=== PATIENT | female | born 1985 | race Caucasian/White ===

== ENCOUNTER 2016-10-30 11:35 | Emergency (ER) | payer OTHER ==
[2016-10-30 11:40] VITALS: BP 137/95
--- NOTE | 2016-10-30 11:51 | EDM.PDOC ---
ED HPI GENERAL MEDICAL PROBLEM - General Chief Complaint: General Stated Complaint: WEAKNESS, BODY ACHES Time Seen by Provider: 10/30/16 11:42 Source of Information: Reports: Patient History Limitations: Reports: No Limitations - History of Present Illness INITIAL COMMENTS - FREE TEXT/NARRATIVE: Patient presents today with complaints of generalized weakness, fatigue and body aches. States hasn't been able to sleep due to discomfort. She has had a mild sore throat. Not much for sinus symptoms at present. Was treated about 2 weeks ago with Cipro for a sinus infection and fluid in the right ear and those symptoms have improved. Feels tired like when she was but did take a home test and that was negative. Patient denies cough, shortness of breath, chest discomfort. No nausea or vomiting but admits she has no appetite. No abdominal pain. No diarrhea. Onset: Gradual Duration: Day(s): Location: Reports: Generalized Quality: Reports: Ache, Dull Severity: Moderate Improves with: Reports: Rest Associated Symptoms: Reports: Fever/Chills, Headaches, Loss of Appetite, Malaise , Weakness. Denies: Chest Pain, Cough, Nausea/Vomiting, Shortness of Breath Generalized Pain Score (Numeric/FACES): 6 - Related Data Allergies Allergy/AdvReac Type Severity Reaction Status Date / Time cefdinir [From Omnicef] Allergy Cannot Verified 10/30/16 11:37 Remember cephalexin [Cephalexin] Allergy Cannot Verified 10/30/16 11:37 Remember Penicillins Allergy Cannot Verified 10/30/16 11:37 Remember Sulfa (Sulfonamide Allergy Cannot Verified 10/30/16 11:37 Antibiotics) Remember Home Meds: Home Meds . 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 Denies: Ear Pain, Rhinitis, Sinus Problem Respiratory: Denies: Shortness of Breath, Cough Cardiovascular: Denies: Chest Pain, Edema Endocrine: Reports: Fatigue GI/Abdominal: Reports: Decreased Appetite. Denies: Nausea, Vomiting : Reports: No Symptoms Musculoskeletal: Reports: Joint Pain, Muscle Pain Skin: Reports: No Symptoms Neurological: Reports: Headache ED EXAM, GENERAL - Physical Exam Exam: See Below Exam Limited By: No Limitations General Appearance: Alert, WD/WN, No Apparent Distress Ears: Normal External Exam, Normal TMs Nose: Normal Inspection, Normal Mucosa, No Blood Throat/Mouth: Other (psoterior pharynx is red, bilaterally patchy exudate noted) Head: Normocephalic Neck: Normal Inspection, Supple, Non-Tender Respiratory/Chest: No Respiratory Distress, Lungs Clear, Normal Breath Sounds Cardiovascular: Regular Rate, Rhythm GI/Abdominal: Normal Bowel Sounds, Soft, Non-Tender Back Exam: Normal Inspection Extremities: Normal Inspection Neurological: Alert, Oriented Psychiatric: Normal Affect, Normal Mood Skin Exam: Warm, Dry Course - Vital Signs Last Recorded V/S: Last Vital Signs Temp 99.7 F 10/30/16 11:38 Pulse 120 H 10/30/16 11:38 Resp 16 10/30/16 11:38 BP 137/95 H 10/30/16 11:38 Pulse Ox 97 10/30/16 11:38 - Orders/Labs/Meds Orders: Active Orders 24 hr Category Date Time Status BASIC METABOLIC PANEL,BMP [CHEM] Stat Lab 10/30/16 11:45 Received C-REACTIVE PROTEIN [CHEM] Stat Lab 10/30/16 11:45 Received TSH REFLEX TO FREE T4 [CHEM] Stat Lab 10/30/16 11:45 Received Labs: Laboratory Tests 10/30/16 10/30/16 10/30/16 Range/Units 11:45 11:45 11:45 WBC 7.7 (5.0-10.0) 10^3/uL RBC 4.71 (4.00-5.50) 10^6/uL Hgb 13.9 (12.0-16.0) g/dL Hct 41.5 (37.0-47.0) % MCV 88.1 (82.0-94.0) fL MCH 29.5 (27.0-32.0) pg MCHC 33.5 (33.0-38.0) g/dL RDW Coeff of Phil 13.2 (11.0-15.0) % Plt Count 273 (150-400) 10^3/uL Neut % (Auto) 77.0 (35-85) % Lymph % (Auto) 11.9 (10-55) % [place] % (Auto) 9.6 (0-16) % Eos % (Auto) 1.2 (0-5) % Baso % (Auto) 0.3 (0-3) % Neut # (Auto) 5.96 (1.80-7.00) 10^3/uL Lymph # (Auto) 0.92 L (1.00-4.80) 10^3/uL [place] # (Auto) 0.74 (0.00-0.80) 10^3/uL Eos # (Auto) 0.09 (0.00-0.45) 10^3/uL Baso # (Auto) 0.02 10^3/uL HCG, Qual Negative Urine Color Yellow (YELLOW) Urine Appearance Clear (CLEAR) Urine pH 6.0 (4.5-8.0) Ur Specific [place] 1.015 (1.003-1.020) Urine Protein Negative (NEGATIVE) mg/dL Urine Glucose (UA) Negative (NEGATIVE) mg/dL Urine Ketones Negative (NEGATIVE) mg/dL Urine Occult Blood Trace-lysed H (NEGATIVE) Urine Nitrite Negative (NEGATIVE) Urine Bilirubin Negative (NEGATIVE) Urine Urobilinogen 0.2 (0.2-1.0) EU/dL Ur Leukocyte Esterase Negative (NEGATIVE) Urine RBC 0-5 (0-5) /HPF Urine WBC Not seen (0-5) /HPF Ur Epithelial Cells Few H (NOT SEEN) /HPF Urine Bacteria Few H (NOT SEEN) /HPF Monoscreen Negative - Re-Assessments/Exams Free Text/Narrative Re-Assessment/Exam: 10/30/16 12:25 Labs reviewed and are all normal at this point. Discussed viral source and treatment plan with patient. Declines the need for IV fluids. Departure - Departure Time of Disposition: 12:25 Disposition: Home, Self-Care 01 Clinical Impression: Acute viral syndrome - Discharge Information Forms: ED Department Discharge Additional Instructions: 1. Push fluids 2. Tylenol or ibuprofen for fever or discomfort 3. Rest 4. We will notify you of any concerns with thyroid testing 5. Follow up in the next few days if persisting or worsening symptoms. - My Orders Last 24 Hours: My Active Orders 10/30/16 11:45 BASIC METABOLIC PANEL,BMP [CHEM] Stat C-REACTIVE PROTEIN [CHEM] Stat TSH REFLEX TO FREE T4 [CHEM] Stat - Assessment/Plan Last 24 Hours: My Active Orders 10/30/16 11:45 BASIC METABOLIC PANEL,BMP [CHEM] Stat C-REACTIVE PROTEIN [CHEM] Stat TSH REFLEX TO FREE T4 [CHEM] Stat
[2016-10-30 12:53] LABS: CHLORIDE,CL 104 mEq/L (98-106); SODIUM,NA 139 mEq/L (136-145)
== END 2016-10-30 12:30 | disposition home or self-care (01) ==
LOC: CC.ED 11:35
DX: B34.9 Viral infection, unspecified (principal); F32.9 Major depressive disorder, single episode, unspecified; E11.9 Type 2 diabetes mellitus without complications; F41.9 Anxiety disorder, unspecified; Z88.2 Allergy status to sulfonamides; Z88.0 Allergy status to penicillin; Z90.49 Acquired absence of other specified parts of digestive tract; Z88.1 Allergy status to other antibiotic agents
CPT/HCPCS: 36415; 80048; 81001; 84443; 84703; 85025; 86140; 86308; 87430; 99284

== ENCOUNTER 2017-03-23 08:26 | Emergency (ER) | payer OTHER ==
[2017-03-23 08:33] VITALS: BP 149/77
[2017-03-23 09:28] LABS: CHLORIDE,CL 102 mEq/L (98-106)
--- NOTE | 2017-03-23 10:06 | EDM.PDOC ---
ED HPI GENERAL MEDICAL PROBLEM - General Chief Complaint: Abdominal Pain Stated Complaint: PAIN IN LOWER LT SIDE AND BACK Time Seen by Provider: 03/23/17 08:55 Source of Information: Reports: Patient History Limitations: Reports: No Limitations - History of Present Illness INITIAL COMMENTS - FREE TEXT/NARRATIVE: Yaneli is a 31 yo female who presents to the ER this morning with complaints of abdominal pain. States it started about 3 days ago, seems to wax and wane. States it is in the left lower abdomen area. Is 14 weeks and had an ultrasound at 8 weeks and everything looked okay. She states she was in the clinic yesterday and given a Zpack and Promethazine with codeine for a cold. She admits she did not discuss her abdominal pain yesterday while in the clinic. States she deals with a lot of constipation when she is and takes colace every day. Stools are still typically hard. She denies any fevers. No nausea or vomiting. Denies any blood in her stool. Duration: Waxing/Waning Location: Reports: Abdomen Associated Symptoms: Reports: No Other Symptoms Left Lower Abdomen Pain Score (Numeric/FACES): 6 - Related Data Allergies Allergy/AdvReac Type Severity Reaction Status Date / Time cefdinir [From Omnicef] Allergy Cannot Verified 03/23/17 08:34 Remember cephalexin [Cephalexin] Allergy Cannot Verified 03/23/17 08:34 Remember Penicillins Allergy Cannot Verified 03/23/17 08:34 Remember Sulfa (Sulfonamide Allergy Cannot Verified 03/23/17 08:34 Antibiotics) Remember Home Meds: Home Meds Azithromycin 500 mg PO ASDIRECTED 03/23/17 [History] Codeine/Promethazine HCl [Promethazine-Codeine Syrup] 5 ml PO Q6H PRN 03/23/17 [ History] Multivitamin [Flintstones] 1 each PO DAILY 03/23/17 [History] Past Medical History HEENT History: Reports: Impaired 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 Denies: Wheezing Cardiovascular: Reports: No Symptoms GI/Abdominal: Reports: Abdominal Pain, Constipation. Denies: Bloody Stool, Diarrhea, Nausea, Vomiting : Reports: Flank Pain. Denies: Discharge, Dysuria, Frequency, Hematuria ED EXAM, GI/ABD - Physical Exam Exam: See Below Exam Limited By: No Limitations General Appearance: Alert, No Apparent Distress Ears: Normal External Exam, Normal Canal, Hearing Grossly Normal, Normal TMs Nose: Normal Inspection, Normal Mucosa, No Blood, Clear Rhinorrhea Throat/Mouth: Normal Inspection, Normal Lips, Normal Teeth, Normal Gums, Normal Oropharynx, No Airway Compromise Head: Atraumatic, Normocephalic Neck: Normal Inspection, Supple Respiratory/Chest: No Respiratory Distress, Lungs Clear, Normal Breath Sounds, No Accessory Muscle Use Cardiovascular: Normal Peripheral Pulses, Regular Rate, Rhythm, No Murmur GI/Abdominal Exam: Normal Bowel Sounds, Soft, Tender (llq, suprapubic) Neurological: Alert, Oriented, Normal Cognition Psychiatric: Normal Affect, Normal Mood Skin Exam: Warm, Dry, Intact, Normal Color, No Rash Course - Vital Signs Last Recorded V/S: Last Vital Signs Temp 97.8 F 03/23/17 08:31 Pulse 107 H 03/23/17 08:31 Resp 16 03/23/17 08:31 BP 149/77 H 03/23/17 08:31 Pulse Ox 98 03/23/17 08:31 - Orders/Labs/Meds Orders: Active Orders 24 hr Category Date Time Status OB Ltd 1 or More Fetus [US] Stat Exams 03/23/17 08:55 Ordered AMYLASE [CHEM] Stat Lab 03/23/17 08:55 Results C-REACTIVE PROTEIN [CHEM] Stat Lab 03/23/17 08:55 Results COMPREHENSIVE METABOLIC PN,CMP [CHEM] Stat Lab 03/23/17 08:55 Results CULTURE URINE [RM] Stat Lab 03/23/17 10:54 Ordered Labs: Laboratory Tests 03/23/17 03/23/17 03/23/17 Range/Units 08:55 08:55 08:57 WBC 8.0 (5.0-10.0) 10^3/uL RBC 4.42 (4.00-5.50) 10^6/uL Hgb 13.4 (12.0-16.0) g/dL Hct 39.2 (37.0-47.0) % MCV 88.7 (82.0-94.0) fL MCH 30.3 (27.0-32.0) pg MCHC 34.2 (33.0-38.0) g/dL RDW Coeff of Phil 13.1 (11.0-15.0) % Plt Count 232 (150-400) 10^3/uL Neut % (Auto) 76.1 (35-85) % Lymph % (Auto) 15.4 (10-55) % [place] % (Auto) 5.6 (0-16) % Eos % (Auto) 2.6 (0-5) % Baso % (Auto) 0.3 (0-3) % Neut # (Auto) 6.09 (1.80-7.00) 10^3/uL Lymph # (Auto) 1.23 (1.00-4.80) 10^3/uL [place] # (Auto) 0.45 (0.00-0.80) 10^3/uL Eos # (Auto) 0.21 (0.00-0.45) 10^3/uL Baso # (Auto) 0.02 10^3/uL Potassium 3.8 (3.5-5.0) mEq/L Chloride 102 (98-106) mEq/L Carbon Dioxide 25 (21-32) mmol/L BUN 5 L (7-18) mg/dL Creatinine 0.6 (0.6-1.0) mg/dL Est Cr Clr Drug Dosing 103.46 mL/min Estimated GFR (MDRD) > 60 (>=60) mL/min Glucose 101 H (75-99) mg/dL Calcium 9.2 (8.4-10.1) mg/dL Total Bilirubin 0.3 (0.0-1.0) mg/dL AST 14 L (15-37) U/L ALT 21 (12-78) U/L Alkaline Phosphatase 77 (46-116) U/L C-Reactive Protein 3.6 H (0.2-0.8) mg/dL Total Protein 7.1 (6.4-8.2) g/dL Albumin 2.9 L (3.4-5.0) g/dL Amylase 42 (25-115) U/L Urine Color Yellow (YELLOW) Urine Appearance Clear (CLEAR) Urine pH 6.5 (4.5-8.0) Ur Specific [place] 1.025 H (1.003-1.020) Urine Protein Negative (NEGATIVE) mg/dL Urine Glucose (UA) Negative (NEGATIVE) mg/dL Urine Ketones 15 H (NEGATIVE) mg/dL Urine Occult Blood Negative (NEGATIVE) Urine Nitrite Negative (NEGATIVE) Urine Bilirubin Negative (NEGATIVE) Urine Urobilinogen 0.2 (0.2-1.0) EU/dL Ur Leukocyte Esterase Trace H (NEGATIVE) Urine RBC Not seen (0-5) /HPF Urine WBC 0-5 (0-5) /HPF Ur Squamous Epith Cells Few H (NOT SEEN) /HPF Urine Bacteria Moderate H (NOT SEEN) /HPF Urine Mucus Few H (NOT SEEN) /HPF Departure - Departure Time of Disposition: 10:58 Disposition: Home, Self-Care 01 Clinical Impression: Dehydration during Constipation Qualifiers: Constipation type: unspecified constipation type Qualified Code(s): K59.00 - Constipation, unspecified UTI (urinary tract infection) Qualifiers: Urinary tract infection type: site unspecified Hematuria presence: without hematuria Qualified Code(s): N39.0 - Urinary tract infection, site not specified - Discharge Information Instructions: Constipation, Adult, [id number], Dehydration, Adult, Easy-to- Read, Urinary Tract Infection, Adult, [id number] Referrals: Delio Barbour MD [Primary Care Provider] - Forms: ED Department Discharge Additional Instructions: 1) Increase water intake 2) Macrobid 100mg twice a day for 10 days 3) Miralax - 1 capful daily as discussed 4) Urine is being cultured, will call with results or if any concerns 5) Ultrasound looked excellent today 6) If any concerns, recommend returning for reevaluation. - Problem List & Annotations (1) Constipation SNOMED Code(s): 73314410 Code(s): K59.00 - CONSTIPATION, UNSPECIFIED Status: Acute Current Visit: Yes Qualifiers: Constipation type: unspecified constipation type Qualified Code(s): K59.00 - Constipation, unspecified (2) Dehydration during SNOMED Code(s): 98755728 Code(s): KCT4810 - Status: Acute Current Visit: Yes (3) UTI (urinary tract infection) SNOMED Code(s): 77934251 Code(s): N39.0 - URINARY TRACT INFECTION, SITE NOT SPECIFIED Status: Acute Current Visit: Yes Qualifiers: Urinary tract infection type: site unspecified Hematuria presence: without hematuria Qualified Code(s): N39.0 - Urinary tract infection, site not specified - Problem List Review Problem List Initiated/Reviewed/Updated: Yes - My Orders Last 24 Hours: My Active Orders 03/23/17 08:55 OB Ltd 1 or More Fetus [US] Stat AMYLASE [CHEM] Stat C-REACTIVE PROTEIN [CHEM] Stat COMPREHENSIVE METABOLIC PN,CMP [CHEM] Stat 03/23/17 10:54 CULTURE URINE [RM] Stat - Assessment/Plan Last 24 Hours: My Active Orders 03/23/17 08:55 OB Ltd 1 or More Fetus [US] Stat AMYLASE [CHEM] Stat C-REACTIVE PROTEIN [CHEM] Stat COMPREHENSIVE METABOLIC PN,CMP [CHEM] Stat 03/23/17 10:54 CULTURE URINE [RM] Stat Plan: See additional instructions
[2017-03-23 12:56] LABS: SODIUM,NA 136 mEq/L (136-145)
== END 2017-03-23 11:07 | disposition home or self-care (01) ==
LOC: CC.ED 08:26
DX: O99.611 Diseases of the digestive system complicating pregnancy, first trimester (principal); K59.00 Constipation, unspecified; O23.41 Unspecified infection of urinary tract in pregnancy, first trimester; O99.281 Endocrine, nutritional and metabolic diseases complicating pregnancy, first trimester; E86.0 Dehydration; Z88.8 Allergy status to other drugs, medicaments and biological substances; Z88.0 Allergy status to penicillin; Z88.2 Allergy status to sulfonamides; Z88.1 Allergy status to other antibiotic agents; Z79.899 Other long term (current) drug therapy; Z3A.14 14 weeks gestation of pregnancy
CPT/HCPCS: 36415; 76815; 80053; 81001; 82150; 85025; 86140; 87086; 87804; 99284

== ENCOUNTER 2017-12-17 18:42 | Emergency (ER) | payer OTHER ==
--- NOTE | 2017-12-17 18:48 | EDM.PDOC ---
ED HPI GENERAL MEDICAL PROBLEM - General Chief Complaint: General Stated Complaint: Patient c/o fever that started today and got up to 100.9, also reports chills, body ache, DANG, sore throat and cough. Denies any UTI symptoms, nausea, vomiting, abdominal pain or diarrhea. Denies being around sick contacts. Time Seen by Provider: 12/17/17 18:47 Source of Information: Reports: Patient History Limitations: Reports: No Limitations - History of Present Illness Onset: Today Duration: Hour(s):, Constant Quality: Reports: Ache Improves with: Reports: None Worsens with: Reports: None Associated Symptoms: Reports: Cough, Fever/Chills, Headaches Headache Pain Score (Numeric/FACES): 7 - Related Data Allergies Allergy/AdvReac Type Severity Reaction Status Date / Time cefdinir [From Omnicef] Allergy Cannot Verified 12/17/17 18:47 Remember cephalexin [Cephalexin] Allergy Cannot Verified 12/17/17 18:47 Remember Penicillins Allergy Cannot Verified 12/17/17 18:47 Remember Sulfa (Sulfonamide Allergy Cannot Verified 12/17/17 18:47 Antibiotics) Remember Home Meds: Home Meds Multivitamin [Flintstones] 1 each PO DAILY 03/23/17 [History] Cholecalciferol (Vitamin D3) [Vitamin D] 5,000 unit PO DAILY 12/17/17 [History] Norethindrone [Leena] 0.35 mg PO DAILY 12/17/17 [History] Past Medical History HEENT History: Reports: Impaired 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, Psychiatric History: Reports: Anxiety, Depression Endocrine/Metabolic History: Reports: Diabetes, Gestational - Past Surgical History GI Surgical History: Reports: Cholecystectomy, Other (See Below) Social & Family History - Family History Family Medical History: Noncontributory - Caffeine Use Caffeine Use: Reports: None ED ROS GENERAL - Review of Systems Review Of Systems: See Below Constitutional: Reports: Fever, Chills, Malaise, Fatigue HEENT: Reports: Rhinitis Respiratory: Reports: Cough Cardiovascular: Reports: No Symptoms Endocrine: Reports: No Symptoms GI/Abdominal: Reports: No Symptoms : Reports: No Symptoms Musculoskeletal: Reports: Muscle Pain Skin: Reports: No Symptoms Neurological: Reports: No Symptoms Psychiatric: Reports: No Symptoms Hematologic/Lymphatic: Reports: No Symptoms Immunologic: Reports: No Symptoms ED EXAM, GENERAL - Physical Exam Exam: See Below Exam Limited By: No Limitations General Appearance: Alert, WD/WN, No Apparent Distress Ears: Normal External Exam, Normal Canal, Hearing Grossly Normal, Normal TMs Nose: Normal Inspection, Normal Mucosa, No Blood Throat/Mouth: Normal Inspection, Normal Lips, Normal Teeth, Normal Gums, Normal Voice, No Airway Compromise, Other (mild pharygeal redness) Neck: Normal Inspection, Supple, Non-Tender Respiratory/Chest: No Respiratory Distress, Lungs Clear, Normal Breath Sounds, No Accessory Muscle Use, Chest Non-Tender Cardiovascular: Normal Peripheral Pulses, Regular Rate, Rhythm, No Edema, No Gallop, No JVD, No Murmur, No Rub GI/Abdominal: Normal Bowel Sounds, Soft, Non-Tender, No Organomegaly, No Distention, No Abnormal Bruit, No Mass, Pelvis Stable Neurological: Alert, Oriented, CN II-XII Intact, Normal Cognition, Normal Gait, No Motor/Sensory Deficits Psychiatric: Normal Affect, Normal Mood Skin Exam: Warm, Dry, Intact, Normal Color, No Rash Course - Vital Signs Text/Narrative:: Stable. Last Recorded V/S: Last Vital Signs Temp 38.7 C H 12/17/17 20:49 Pulse 108 H 12/17/17 20:15 Resp 18 12/17/17 20:15 BP 139/88 12/17/17 20:15 Pulse Ox 100 12/17/17 20:15 - Orders/Labs/Meds Labs: Influenza negative Strep negative. Meds: Medications Discontinued Medications Generic Name Dose Route Start Last Admin Trade Name Franciscoq PRN Reason Stop Dose Admin Ibuprofen 400 mg 12/17/17 19:38 12/17/17 20:49 Motrin PO 12/17/17 19:39 400 mg ONETIME ONE Administration Ibuprofen Confirm 12/17/17 19:33 12/17/17 20:46 Motrin Administered 12/17/17 19:34 Not Given Dose 400 mg .ROUTE .STK-MED ONE Departure - Departure Time of Disposition: 20:03 Disposition: Home, Self-Care 01 Condition: Good Clinical Impression: Fever - Discharge Information *PRESCRIPTION DRUG MONITORING PROGRAM REVIEWED*: Not Applicable *COPY OF PRESCRIPTION DRUG MONITORING REPORT IN PATIENT EVELIN: Not Applicable Instructions: Fever, Adult Referrals: Provider,Unknown [Primary Care Provider] - Forms: ED Department Discharge Additional Instructions: Take tylenol and ibuprofen as directed as needed for fever. Follow up with PCP in 2-3 days if symptoms do not improve. Push fluids. - Problem List & Annotations (1) Fever SNOMED Code(s): 293102232 Code(s): R50.9 - FEVER, UNSPECIFIED Status: Acute - Problem List Review Problem List Initiated/Reviewed/Updated: Yes - Assessment/Plan Assessment:: Fever, given Ibuprofen. Probable viral illness, URI Plan: Take Ibuprofen or tylenol as needed for fever. Push fluids. Follow up with PCP if fever and symptoms persist.
[2017-12-17] MEDS ORDERED: Ibuprofen 200 MG Tab ONE (19:33)
[2017-12-17] MEDS ORDERED: Ibuprofen 200 MG Tab PO ONE (19:38)
[2017-12-17 20:48] VITALS: BP 139/88
== END 2017-12-17 20:20 | disposition home or self-care (01) ==
LOC: CC.ED 18:42
DX: R50.9 Fever, unspecified (principal); F41.9 Anxiety disorder, unspecified; F32.9 Major depressive disorder, single episode, unspecified; Z88.8 Allergy status to other drugs, medicaments and biological substances; Z88.2 Allergy status to sulfonamides
CPT/HCPCS: 87430; 87804; 99283; A9270

== ENCOUNTER 2019-01-09 17:53 | Emergency (ER) | payer OTHER ==
[2019-01-09 18:40] LABS: CHLORIDE,CL 103 mEq/L (98-106); SODIUM,NA 139 mEq/L (136-145)
[2019-01-09] MEDS: Ketorolac 60 MG/2 ML SDV ONE (19:02)
[2019-01-09] MEDS: Lidocaine 2% Viscous Solution 15 ML Cup PO ONE (19:30)
[2019-01-09] MEDS: Aluminum Hydroxide/Magnesium Hydroxide/Simethicone Susp 30 ML Cup PO ONE (19:30)
[2019-01-09] MEDS: Lidocaine 2% Viscous Solution 15 ML Cup ONE (19:32)
[2019-01-09] MEDS: Aluminum Hydroxide/Magnesium Hydroxide/Simethicone Susp 30 ML Cup ONE (19:32)
--- NOTE | 2019-01-09 20:10 | EDM.PDOC ---
ED HPI GENERAL MEDICAL PROBLEM - General Chief Complaint: General Stated Complaint: chest pain Time Seen by Provider: 01/09/19 18:15 Source of Information: Reports: Patient History Limitations: Reports: No Limitations - History of Present Illness INITIAL COMMENTS - FREE TEXT/NARRATIVE: Patient presents to ER with complaints of left anterior chest pain, nausea, back pain, leg pain and "tingling in her lips". She reports was driving home from work today around 1530 when developed chest pain. States radiates through to back. No real shortness of breath. Does feel nauseated. Has left lower back pain that is radiating down her left leg. No vomiting. No diarrhea. Denies urinary complaints. Has low grade fever. No recent trauma or injury. Relates has history of pericarditis, feels somewhat like that only never had the back pain with that. No swelling noted in her legs. Onset: Today, Sudden Duration: Hour(s):, Constant Location: Reports: Chest, Abdomen, Back, Lower Extremity, Left Quality: Reports: Sharp Severity: Severe Improves with: Reports: Rest Worsens with: Reports: Other (lying flat) Associated Symptoms: Reports: Chest Pain, Fever/Chills, Nausea/Vomiting. Denies : Confusion, Cough, Headaches, Loss of Appetite, Malaise, Shortness of Breath, Syncope Treatments STEM FRAZER: Reports: NSAIDS - Related Data Allergies Allergy/AdvReac Type Severity Reaction Status Date / Time cefdinir [From Omnicef] Allergy Cannot Verified 01/09/19 18:37 Remember cephalexin [Cephalexin] Allergy Cannot Verified 01/09/19 18:37 Remember Penicillins Allergy Cannot Verified 01/09/19 18:37 Remember Sulfa (Sulfonamide Allergy Cannot Verified 01/09/19 18:37 Antibiotics) Remember Home Meds: Home Meds Desogestrel-Ethinyl Estradiol [Juleber 28 Day Tablet] 1 tab PO DAILY 01/09/19 [ History] Escitalopram [Lexapro] 10 mg PO DAILY 01/09/19 [History] Past Medical History HEENT History: Reports: Impaired Vision [employer] History: Reports: Endometriosis, Psychiatric History: Reports: Anxiety, Depression Endocrine/Metabolic History: Reports: Diabetes, Gestational Hematologic History: Reports: Anemia - Past Surgical History HEENT Surgical History: Reports: None GI Surgical History: Reports: Cholecystectomy, Other (See Below) Social & Family History - Family History Family Medical History: Noncontributory - Tobacco Use Smoking Status *Q: Never Smoker - Caffeine Use Caffeine Use: Reports: Coffee, Soda - Recreational Drug Use Recreational Drug Use: No ED ROS GENERAL - Review of Systems Review Of Systems: See Below Constitutional: Reports: Fever, Chills, Malaise, Weakness, Fatigue. Denies: Decreased Appetite HEENT: Reports: No Symptoms Respiratory: Denies: Shortness of Breath, Cough Cardiovascular: Reports: Chest Pain. Denies: Edema, Lightheadedness Endocrine: Denies: Fatigue GI/Abdominal: Reports: Nausea. Denies: Abdominal Pain, Constipation, Diarrhea, Vomiting Musculoskeletal: Reports: No Symptoms Skin: Reports: No Symptoms Neurological: Reports: No Symptoms Psychiatric: Reports: No Symptoms ED EXAM, GENERAL - Physical Exam Exam: See Below Exam Limited By: No Limitations General Appearance: Alert, WD/WN, Moderate Distress (tearful) Ears: Normal External Exam, Normal TMs Nose: Normal Inspection, Normal Mucosa, No Blood Throat/Mouth: Normal Inspection, Normal Oropharynx Head: Normocephalic Neck: Normal Inspection, Supple, Non-Tender Respiratory/Chest: No Respiratory Distress, Lungs Clear, Normal Breath Sounds, Other (increased pain with palpation to left chest wall) Cardiovascular: Regular Rate, Rhythm, No Edema GI/Abdominal: Normal Bowel Sounds, Soft, Non-Tender Extremities: Normal Inspection, No Pedal Edema Neurological: Alert, Oriented Skin Exam: Warm, Dry Course - Vital Signs Last Recorded V/S: Last Vital Signs Temp 98.9 F 01/09/19 19:55 Pulse 94 01/09/19 19:55 Resp 16 01/09/19 19:55 BP 135/75 01/09/19 19:55 Pulse Ox 98 01/09/19 19:55 - Orders/Labs/Meds Orders: Active Orders 24 hr Category Date Time Status Chest 2V [CR] Routine Exams 01/09/19 Taken Labs: Laboratory Tests 01/09/19 01/09/19 01/09/19 Range/Units 18:21 18:21 18:21 WBC 13.3 H (5.0-10.0) 10^3/uL RBC 4.69 (4.00-5.50) 10^6/uL Hgb 14.0 (12.0-16.0) g/dL Hct 41.7 (37.0-47.0) % MCV 88.9 (82.0-94.0) fL MCH 29.9 (27.0-32.0) pg MCHC 33.6 (33.0-38.0) g/dL RDW Coeff of Phil 13.0 (11.0-15.0) % Plt Count 257 (150-400) 10^3/uL Neut % (Auto) 83.4 (35-85) % Lymph % (Auto) 10.1 (10-55) % Hoke % (Auto) 5.2 (0-16) % Eos % (Auto) 1.1 (0-5) % Baso % (Auto) 0.2 (0-3) % Neut # (Auto) 11.10 H (1.80-7.00) 10^3/uL Lymph # (Auto) 1.34 (1.00-4.80) 10^3/uL Hoke # (Auto) 0.69 (0.00-0.80) 10^3/uL Eos # (Auto) 0.14 (0.00-0.45) 10^3/uL Baso # (Auto) 0.03 10^3/uL PT 9.6 L (9.7-12.3) SEC INR 0.93 (0.92-1.18) D-Dimer, Quantitative (0.00-0.50) Sodium 139 (136-145) mEq/L Potassium 4.2 (3.5-5.0) mEq/L Chloride 103 (98-106) mEq/L Carbon Dioxide 25 (21-32) mmol/L BUN 11 D (7-18) mg/dL Creatinine 0.8 (0.6-1.0) mg/dL Est Cr Clr Drug Dosing 76.18 mL/min Estimated GFR (MDRD) > 60 (>=60) mL/min Glucose 110 H (75-99) mg/dL Calcium 9.5 (8.4-10.1) mg/dL Lactate Dehydrogenase 182 (100-190) U/L Creatine Kinase 85 (21-215) U/L Troponin I < 0.017 (0.00-0.06) ng/mL 01/09/19 Range/Units 18:30 WBC (5.0-10.0) 10^3/uL RBC (4.00-5.50) 10^6/uL Hgb (12.0-16.0) g/dL Hct (37.0-47.0) % MCV (82.0-94.0) fL MCH (27.0-32.0) pg MCHC (33.0-38.0) g/dL RDW Coeff of Phil (11.0-15.0) % Plt Count (150-400) 10^3/uL Neut % (Auto) (35-85) % Lymph % (Auto) (10-55) % Hoke % (Auto) (0-16) % Eos % (Auto) (0-5) % Baso % (Auto) (0-3) % Neut # (Auto) (1.80-7.00) 10^3/uL Lymph # (Auto) (1.00-4.80) 10^3/uL Hoke # (Auto) (0.00-0.80) 10^3/uL Eos # (Auto) (0.00-0.45) 10^3/uL Baso # (Auto) 10^3/uL PT (9.7-12.3) SEC INR (0.92-1.18) D-Dimer, Quantitative 0.40 (0.00-0.50) Sodium (136-145) mEq/L Potassium (3.5-5.0) mEq/L Chloride (98-106) mEq/L Carbon Dioxide (21-32) mmol/L BUN (7-18) mg/dL Creatinine (0.6-1.0) mg/dL Est Cr Clr Drug Dosing mL/min Estimated GFR (MDRD) (>=60) mL/min Glucose (75-99) mg/dL Calcium (8.4-10.1) mg/dL Lactate Dehydrogenase (100-190) U/L Creatine Kinase (21-215) U/L Troponin I (0.00-0.06) ng/mL Meds: Medications Discontinued Medications Generic Name Dose Route Start Last Admin Trade Name Freq PRN Reason Stop Dose Admin Al Hydroxide/Mg Hydroxide 30 ml 01/09/19 19:28 01/09/19 19:30 Mag-Al Plus PO 01/09/19 19:29 30 ml ONETIME ONE Administration Al Hydroxide/Mg Hydroxide Confirm 01/09/19 19:13 01/09/19 19:32 Mag-Al Plus Administered 01/09/19 19:14 Not Given Dose 30 ml .ROUTE .STK-MED ONE Ketorolac Tromethamine Confirm 01/09/19 18:45 01/09/19 19:02 Toradol Administered 01/09/19 18:46 60 mg Dose Administration 60 mg .ROUTE .STK-MED ONE Lidocaine HCl 15 ml 01/09/19 19:28 01/09/19 19:30 Xylocaine 2% Viscous PO 01/09/19 19:29 15 ml ONETIME ONE Administration Lidocaine HCl Confirm 01/09/19 19:13 01/09/19 19:32 Xylocaine 2% Viscous Administered 01/09/19 19:14 Not Given Dose 15 ml .ROUTE .STK-MED ONE - Re-Assessments/Exams Free Text/Narrative Re-Assessment/Exam: 01/09/19 Labs reviewed, normal. Pain improved from 8-6 after Toradol injection. Was given GI cocktail without much change. Looks to be in less distress. Reassured of normal lab findings. Normal EKG, normal CXR. Departure - Departure Time of Disposition: 20:09 Disposition: Home, Self-Care 01 Condition: Fair Clinical Impression: Atypical chest pain - Discharge Information *PRESCRIPTION DRUG MONITORING PROGRAM REVIEWED*: No *COPY OF PRESCRIPTION DRUG MONITORING REPORT IN PATIENT EVELIN: No Referrals: Vanessa Lewis NP [Primary Care Provider] - Forms: ED Department Discharge Additional Instructions: 1. Rest 2. Push fluids 3. Ibuprofen 600 mg every 6 hours for chest discomfort 4. Follow up if persisting pain, fever, shortness of breath, etc.
[2019-01-09 20:19] VITALS: BP 135/75; PULSE 94
== END 2019-01-09 20:26 | disposition home or self-care (01) ==
LOC: CC.ED 17:53
DX: R07.89 Other chest pain (principal); F41.9 Anxiety disorder, unspecified; F32.9 Major depressive disorder, single episode, unspecified; Z88.1 Allergy status to other antibiotic agents; Z88.0 Allergy status to penicillin; Z88.2 Allergy status to sulfonamides; Z88.8 Allergy status to other drugs, medicaments and biological substances; Z79.899 Other long term (current) drug therapy
CPT/HCPCS: 36415; 71046; 80048; 82550; 83615; 84484; 85025; 85379; 85610; 87804; 93005; 99284; 99285-25; A9270-GY; J1885

== ENCOUNTER 2022-01-08 21:30 | Emergency (ER) | payer OTHER ==
[2022-01-08] MEDS ORDERED: Ondansetron 4 MG/2 ML SDV IVPUSH ONE (21:53)
[2022-01-08] MEDS ORDERED: Sodium Chloride 0.9% 10 ML Syringe FLUSH PRN (21:53)
[2022-01-08] MEDS ORDERED: Sodium Chloride 0.9% 1,000 ML IV ONE (22:04)
[2022-01-08 22:47] VITALS: BP 120/60; PULSE 96
[2022-01-08] MEDS ORDERED: Ketorolac 30 MG/ML SDV IVPUSH ONE (22:50)
[2022-01-08] MEDS ORDERED: Simethicone 80 MG Tab.Chew PO ONE (22:51)
[2022-01-08 22:55] LABS: CORONAVIRUS COVID-19 NAA NEGATIVE (NEGATIVE); RESPIRATORY SYNCYTIAL VIR NAA NEGATIVE (NEGATIVE)
[2022-01-08] MEDS ORDERED: Take Home: Ondansetron 4 MG Tab.DIS, 2 Tab Pack PO ONE (22:58)
== END 2022-01-08 23:20 | disposition home or self-care (01) ==
LOC: CC.ED 21:30
DX: R10.84 Generalized abdominal pain (principal); Z88.1 Allergy status to other antibiotic agents; Z88.0 Allergy status to penicillin; Z88.2 Allergy status to sulfonamides; Z20.822 Contact with and (suspected) exposure to COVID-19
CPT/HCPCS: 0241U; 36415; 74018; 80053; 81003; 81025; 82150; 83690; 85025; 96361; 96374; 96375; 99284-25; A9270-GY; J1885; J2405; J7030

== ENCOUNTER 2023-04-20 07:42 | Emergency (ER) | payer OTHER ==
[2023-04-20 08:08] LABS: APPEARANCE,URINE CLEAR (CLEAR); BILIRUBIN,URINE SMALL (NEGATIVE); COLOR,URINE YELLOW (YELLOW); GLUCOSE,URINE NEGATIVE (NEGATIVE); KETONES,URINE 40 mg/dL (NEGATIVE); LEUKOCYTE ESTERASE,URINE NEGATIVE (NEGATIVE); NITRITE,URINE NEGATIVE (NEGATIVE); OCCULT BLOOD,URINE NEGATIVE (NEGATIVE); PROTEIN,URINE NEGATIVE (NEGATIVE); UROBILINOGEN,URINE 0.2 EU/dL (0.2-1.0)
[2023-04-20 08:19] LABS: BACTERIA,URINE FEW /HPF (NOT SEEN); RBC,URINE 0-5 /HPF (0-5); SQUAMOUS EPITHELIAL CELLS,UR FEW /HPF (NOT SEEN); WBC,URINE 0-5 /HPF (0-5)
[2023-04-20 11:23] VITALS: BP 133/87; PULSE 91
== END 2023-04-20 09:00 | disposition home or self-care (01) ==
LOC: CC.ED 07:42
DX: O99.891 Other specified diseases and conditions complicating pregnancy (principal); M62.838 Other muscle spasm; Z3A.01 Less than 8 weeks gestation of pregnancy; Z88.0 Allergy status to penicillin; Z88.2 Allergy status to sulfonamides; Z88.8 Allergy status to other drugs, medicaments and biological substances; Z79.899 Other long term (current) drug therapy; Z90.49 Acquired absence of other specified parts of digestive tract
CPT/HCPCS: 81001; 81025; 99283